=== PATIENT | female | born 1985 | race Caucasian/White ===

== ENCOUNTER 2020-05-28 05:16 | Inpatient (IN) | payer OTHER, SELFPAY ==
[2020-05-28] VITALS (24 sets, daily range): BP systolic 125–171; BP diastolic 55–97; PULSE 80–126; RESP 15–24; TEMP 36.6–36.9; O2SAT 80–97
--- NOTE | ~2020-05-28 | XR_ITS ---
EXAMINATION: XR chest 1V portable DATE: 05/28/2020 06:13 INDICATION: Asthma presenting with dyspnea. TECHNIQUE: frontal view of the chest was obtained. COMPARISON: None FINDINGS: Right internal jugular central venous port catheter with distal tip near the superior cavoatrial junc tion. The lungs are clear with no focal airspace opacities, pulmonary edema, pleural effusion or pneu mothorax. The cardiomediastinal silhouette is normal. Visualized bones and soft tissues are unremarka ble. IMPRESSION: 1. No acute cardiopulmonary disease. Reviewed, dictated and finalized at location A.
[2020-05-28] MEDS: IPRATROPIUM BR 0.02% INH SOLN 0.5 MG/2.5 ML VIAL INHALATION ×5 (05:41→20:16)
[2020-05-28] MEDS: ALBUTEROL SULFATE NEB 2.5 MG/0.5 ML INH 5 MG INHALATION ×5 (05:41→20:16)
[2020-05-28] MEDS: methylPREDNISolone SOD SUCC 125 MG VIAL IV PUSH (05:42)
[2020-05-28] MEDS: MAGNESIUM SULF 2 GM/WATER 50ML 2 GM/50 ML BAG IVPB (05:42)
--- NOTE | 2020-05-28 05:50 | ECG_ITS ---
Measurements Intervals [place] Rate: 106 P: 83 [place]: 150 QRS: 79 QRSD: 93 T: 50 QT: 328 QTc: 436 Interpretive Statements SINUS TACHYCARDIA DELAYED PRECORDIAL R/S TRANSITION BORDERLINE ST-T WAVE ABNORMALITY- INFERIOR LEADS BASELINE ARTIFACT- I, II, III, AVR, AVL, AVF, V1-V6 ABNORMAL ECG Electronically Signed On 05-28-2020 9:04:11 CDT by Evaristo Doherty D.O.
--- NOTE | 2020-05-28 05:59 | ED.GENADULT ---
HPI - General Adult General Chief complaint: Asthma Stated complaint: SOB Time Seen by Provider: 05/28/20 05:30 History of Present Illness HPI narrative: Patient a 34-year-old female who presents the emergency department chief complaint of shortness of breath. Patient reports she has history of asthma has not required any previous intubations or admissions patient states that her children have had an upper respiratory infection recently and tonight she started having shortness of breath. The patient reports she used her inhaler multiple times and has had continual shortness of breath upon initial presentation she had a room air saturation in the 80s. The patient reports that she has not had a fever reports that she has been wheezing significantly Related Data Allergies Allergy/AdvReac Type Severity Reaction Status Date / Time bacitracin Allergy Mild Unverified 06/29/18 14:37 neomycin Allergy Mild Unverified 06/29/18 14:37 amoxicillin Allergy Unknown Skin Verified 02/14/17 21:20 Reaction codeine Allergy Unknown Nausea Verified 02/14/17 21:20 polymyxin B Allergy Unknown Nausea Verified 06/29/18 14:37 Sulfa (Sulfonamide Allergy Unknown Verified 06/29/18 14:37 Antibiotics) Review of Systems Review of Systems: Narrative: A 10 system review of systems was completed on the patient and is negative except for what is stated in the HPI. Nursing and ancillary documentation was reviewed. [facility] Surgical History Surgical History H/O bilateral mastectomy right- prophylactic/ left mod radical ( er neg) Social History Social History Smoking status: Never smoker Alcohol intake: never Comments Past medical history significant for asthma Exam Narrative: Exam Narrative: GENERAL: Well-appearing, well-nourished, and in no acute distress. HEAD: Normocephalic, atraumatic. EYES: PERRLA and EOMI. ENT: Nares clear, no rhinorrhea or epistaxis. Mucous membranes moist. NECK: Supple. CHEST: Expiratory wheezes auscultation. Mild respiratory distress. HEART: Regular rate and rhythm. No murmur heard. Normal peripheral pulses. ABDOMEN: Soft, nontender, nondistended, normal active bowel sounds. EXTREMITIES: Normal range of motion. No edema. SKIN: Warm, dry, no rash. NEURO: No focal deficits. Alert and oriented x3. PSYCH: Normal mood and affect. Course Vital Signs Vital signs: Vital Signs Temperature 36.9 C 05/28/20 05:22 Pulse Rate 110 H 05/28/20 05:22 Respiratory Rate 17 05/28/20 05:22 Blood Pressure 171/95 H 05/28/20 05:22 Pulse Oximetry 80 L 05/28/20 05:22 Temperature 36.9 C 05/28/20 05:22 Pulse Rate 89 05/28/20 06:58 Respiratory Rate 15 05/28/20 06:58 Blood Pressure 136/63 05/28/20 06:58 Pulse Oximetry 96 05/28/20 06:58 Medical Decision Making Vital Signs Vital Signs: Vital Signs Temperature 36.9 C 05/28/20 05:22 Pulse Rate 110 H 05/28/20 05:22 Respiratory Rate 17 05/28/20 05:22 Blood Pressure 171/95 H 05/28/20 05:22 Pulse Oximetry 80 L 05/28/20 05:22 Temperature 36.9 C 05/28/20 05:22 Pulse Rate 89 05/28/20 06:58 Respiratory Rate 15 05/28/20 06:58 Blood Pressure 136/63 05/28/20 06:58 Pulse Oximetry 96 05/28/20 06:58 Lab Data Result diagrams: 05/28/20 05:53 05/28/20 05:53 Labs: Lab Results 05/28/20 05/28/20 Range/Units 05:53 05:53 WBC 13.8 H (4.5-10.0) K/mm3 RBC 4.62 (4.2-5.4) M/mm3 Hgb 13.3 (12.0-15.0) g/dL Hct 40.7 (37.0-47.0) % MCV 88.1 (80-100) fl MCH 28.8 (26-34) pg MCHC 32.7 (32-36) g/dl RDW 14.3 (11.5-14.5) % Plt Count 367 (150-375) k/mm3 MPV 9.5 (7.4-10.4) fl Immature Gran % (Auto) 0.4 (0-0.5) % Neut % (Auto) 84.9 H (45.5-73.1) % Lymph % (Auto) 7.5 L (18.3-44.2) % [place] % (Auto) 5.1 (2.6-8.5) % Eos % (Auto) 1.7
--- NOTE | 2020-05-28 06:00 | PC.NURSE ---
pt states she isn't able to urinate at this time.
[2020-05-28 06:06] LABS: Basophils Absolute Auto 0.1 K/mm3 (0.0-0.1); Basophils Percent Auto 0.4 % (0.2-1.2); Eosinophils Absolute Auto 0.2 K/mm3 (0-0.3); Eosinophils Percent Auto 1.7 % (0-4.4); Hematocrit 40.7 % (37.0-47.0); Hemoglobin 13.3 g/dL (12.0-15.0); Immature Granulocyte Absolute 0.05 K/mm3 (0.00-0.031); Immature Granulocyte Percent A 0.4 % (0-0.5); Lymphocytes Absolute Auto 1.04 K/mm3 (0.9-3.2); Lymphocytes Percent Auto 7.5 % (18.3-44.2); Mean Corpuscular HGB Conc 32.7 g/dl (32-36); Mean Corpuscular Hemoglobin 28.8 pg (26-34); Mean Corpuscular Volume 88.1 fl (80-100); Mean Platelet Volume 9.5 fl (7.4-10.4); Monocytes Absolute Auto 0.7 K/mm3 (0.1-0.6); Monocytes Percent Auto 5.1 % (2.6-8.5); Neutrophils Absolute Auto 11.7 K/mm3 (1.3-6.7); Neutrophils Percent Auto 84.9 % (45.5-73.1); Platelet Count Result 367 k/mm3 (150-375); Red Blood Count 4.62 M/mm3 (4.2-5.4); Red Cell Distribution Width 14.3 % (11.5-14.5); White Blood Count 13.8 K/mm3 (4.5-10.0)
[2020-05-28 06:22] LABS: Alanine Aminotransferase 19 U/L (4-35); Albumin Level 4.3 g/dL (3.5-5.1); Alkaline Phosphatase 74 U/L (38-126); Anion Gap 8 mmol/L (8-16); Aspartate Amino Transferase 28 U/L (14-36); Bilirubin,Total 0.2 mg/dL (0.2-1.3); Blood Urea Nitrogen 9 mg/dL (7-17); Calcium 8.4 mg/dL (8.4-10.2); Carbon Dioxide 24 mmol/L (22-30); Chloride 108 mmol/L (98-107); Estimated Glomerular Filt Rate > 60; Glucose 117 mg/dL (65-105); Potassium 3.6 mmol/L (3.4-5.0); Sodium 140 mmol/L (137-145)
--- NOTE | 2020-05-28 06:59 | PC.NURSE ---
pt states she still isnt able to urinate. denies straight cath
--- NOTE | 2020-05-28 07:12 | PC.NURSE ---
Took over care of pt at this time.
--- NOTE | 2020-05-28 09:00 | ADMGEN ---
This patient, Shadia Nieves, was admitted to [facility] Surg Room 311-01. Patient/family oriented to hospital policies and general routines including ID bracelet, bed and alarms, visiting hours, pain management, procedures, bathroom and other care routines, personal items, smoking policy, room service/diet, and visiting hours. Information on how to activate the Rapid Response Team has been discussed. Patient/Family are encouraged to report perceived risks to care and to ask questions if they do not understand what they are told or what they should do.
[2020-05-28] MEDS: ALPRAZolam (*CRX) 0.5 MG TABLET PO ×3 (10:29→17:32)
--- NOTE | 2020-05-28 13:39 | PM.IMHP ---
H&P: HPI History of Present Illness Date/Time: 05/28/20 13:39, patient is a 34-year-old female with history of asthma patient uses albuterol inhaler, patient states nearly every night patient gets up with cough and shortness of she does uses nebulizer with some relief however her children's and now have upper respiratory infection and symptoms were getting worse and patient became hypoxic upon arrival to emergency depart she was desaturating and 80s on room air, was placed on 2 L nasal cannula given updraft as well as Solu-Medrol, patient states feeling much better compared to when she arrived, c/o cough, shortness of breath and wheezing but no fever or chills, patient's chest x-ray does not show any cardiopulmonary pathology however have added doxycycline to cover for atypicals will continue Solu-Medrol, Pulmicort and updraft, there is also concern the patient may be positive for COVID patient is isolated and tested will continue to monitor, Chief Complaint: Shortness of breath Review of Systems Review of Systems: All systems reviewed & are unremarkable except as noted in HPI and below [facility] Surgical History Surgical History H/O bilateral mastectomy right- prophylactic/ left mod radical ( er neg) Family History Family History (Updated 05/28/20 @ 09:59 by Murtaza Dutton RN) Sibling Asthma Father Chronic obstructive pulmonary disease Diabetes mellitus Social History Social History Smoking status: Never smoker Alcohol intake: never Substance use: never Spiritual care concerns: No Meds Home Medications and Allergies Home Medications Medication Instructions Recorded Confirmed Type alprazolam 0.5 mg tablet 0.5 mg PO TID #90 tablet 06/23/19 05/28/20 Rx paroxetine HCl 40 mg tablet See Rx Instructions .ROUTE 04/25/20 05/28/20 Rx .COMPLEX #90 tablet albuterol sulfate 2.5 mg INHALATION Q8H #75 ml 05/18/20 05/28/20 Rx Allergies Allergy/AdvReac Type Severity Reaction Status Date / Time bacitracin Allergy Mild Rash Verified 05/28/20 09:44 neomycin Allergy Mild Rash Verified 05/28/20 09:44 codeine Allergy Unknown Nausea Verified 02/14/17 21:20 polymyxin B Allergy Unknown Nausea Verified 06/29/18 14:37 Sulfa (Sulfonamide Allergy Unknown Rash Verified 05/28/20 09:44 Antibiotics) Vital Signs Vital Signs - 24 hr 05/28/20 05:22 05/28/20 05:25 05/28/20 05:42 Temperature 98.5 F Pulse Rate 110 H 111 H Respiratory Rate 17 18 Blood Pressure 171/95 H Pulse Oximetry 80 L 93 05/28/20 05:51 05/28/20 06:01 05/28/20 06:58 Temperature Pulse Rate 126 H 105 H 89 Respiratory Rate 19 21 H 15 Blood Pressure 146/97 H 136/63 Pulse Oximetry 97 96 05/28/20 07:30 05/28/20 07:42 05/28/20 07:50 Temperature Pulse Rate 97 95 98 Respiratory Rate 19 15 18 Blood Pressure 143/86 H Pulse Oximetry 95 05/28/20 08:30 05/28/20 09:00 05/28/20 09:30 Temperature 98.2 F Pulse Rate 93 89 Respiratory Rate 19 20 Blood Pressure 137/73 152/83 H Pulse Oximetry 95 96 91 05/28/20 10:37 05/28/20 10:49 05/28/20 12:00 Temperature 98.1 F Pulse Rate 102 H 96 80 Respiratory Rate 20 18 16 Blood Pressure 147/70 H Pulse Oximetry 92 93 Exam Narrative: Exam Narrative: Able to speak in full sentences Patient is comfortable, NAD HEENT: eyes are clear and none icteric LUNGS: Bilateral fair air entry with rhonchi and wheezing HEART: RR S1S2 ABD: BS+, Soft and nontender Lower extremities: no edema SKIN: nonjaundiced Neuro: grossly intact. H&P: Results Labs Labs: Short CBC 05/28/20 Range/Units 05:53 WBC 13.8 H (4.5-10.0) K/mm3 Hgb 13.3 (12.0-15.0) g/dL Hct 40.7 (37.0-47.0) % Plt Count 367 (150-375) k/mm3 [facility] 05/28/20 05:53 Sodium 140 Potassium 3.6 Chloride 108 H Carbon Dioxide 24 BUN 9 Creatinine 0.50 L Glucose
[2020-05-28] MEDS: methylPREDNISolone SOD SUCC 125 MG VIAL 60 MG IV PUSH ×2 (13:48→21:20)
[2020-05-28] MEDS: BUDESONIDE RESPULE NEB 0.5 MG/2 ML AMP INHALATION (20:16)
[2020-05-28] MEDS: PARoxetine 20 MG TABLET BY MOUTH (21:02)
[2020-05-28] MEDS: ACETAMINOPHEN 325 MG TABLET 650 MG PO (21:04)
[2020-05-29] VITALS (17 sets, daily range): BP systolic 118–151; BP diastolic 58–78; PULSE 85–109; RESP 18–20; TEMP 36.1–37; O2SAT 92–100
[2020-05-29] MEDS: ALBUTEROL SULFATE NEB 2.5 MG/0.5 ML INH 5 MG INHALATION ×4 (02:01→20:13)
[2020-05-29] MEDS: IPRATROPIUM BR 0.02% INH SOLN 0.5 MG/2.5 ML VIAL INHALATION ×4 (02:02→20:13)
[2020-05-29] MEDS: methylPREDNISolone SOD SUCC 125 MG VIAL 60 MG IV PUSH ×3 (06:07→20:35)
[2020-05-29] MEDS: BUDESONIDE RESPULE NEB 0.5 MG/2 ML AMP INHALATION ×2 (08:03→20:13)
[2020-05-29] MEDS: ALPRAZolam (*CRX) 0.5 MG TABLET PO ×3 (10:27→17:39)
--- NOTE | 2020-05-29 13:57 | PM.IMPN ---
Progress Note: A&P Assessment and Plan (1) Exacerbation of asthma: Code(s): J45.901 - Unspecified asthma with (acute) exacerbation Status: Acute Assessment and Plan: 05/29/20 13:57 patient is a 34-year-old female with history of asthma patient uses albuterol inhaler, patient states nearly every night patient gets up with cough and shortness of she does uses nebulizer with some relief however her children's and now have upper respiratory infection and symptoms were getting worse and patient became hypoxic upon arrival to emergency depart she was desaturating and 80s on room air, was placed on 2 L nasal cannula given updraft as well as Solu-Medrol, patient states feeling much better compared to when she arrived, c/o cough, shortness of breath and wheezing but no fever or chills, patient's chest x-ray does not show any cardiopulmonary pathology however have added doxycycline to cover for atypicals will continue Solu-Medrol, Pulmicort and updraft, there is also concern the patient may be positive for COVID patient is isolated and tested will continue to monitor. 05/29 patient with examination of asthma being treated with Solu-Medrol updraft and doxycycline states feeling much better today not a short of breath and wants to go home, patient is being isolated and tested to COVID is pending, will continue to monitor and follow-up on COVID test and further recommendation to follow, as her symptoms improve will taper Solu-Medrol to oral prednisone further recommendation to follow. (2) COVID-19 ruled out: Code(s): Z20.822 - Contact with and (suspected) exposure to COVID-19 Status: Acute Assessment and Plan: there is also concern the patient may be positive for COVID patient is isolated and tested will continue to monitor. Subjective Date/time seen: 05/29/20 13:57 patient is a 34-year-old female with history of asthma patient uses albuterol inhaler, patient states nearly every night patient gets up with cough and shortness of she does uses nebulizer with some relief however her children's and now have upper respiratory infection and symptoms were getting worse and patient became hypoxic upon arrival to emergency depart she was desaturating and 80s on room air, was placed on 2 L nasal cannula given updraft as well as Solu-Medrol, patient states feeling much better compared to when she arrived, c/o cough, shortness of breath and wheezing but no fever or chills, patient's chest x-ray does not show any cardiopulmonary pathology however have added doxycycline to cover for atypicals will continue Solu-Medrol, Pulmicort and updraft, there is also concern the patient may be positive for COVID patient is isolated and tested will continue to monitor. 05/29 patient with examination of asthma being treated with Solu-Medrol updraft and doxycycline states feeling much better today not a short of breath and wants to go home, patient is being isolated and tested to COVID is pending, will continue to monitor and follow-up on COVID test and further recommendation to follow, as her symptoms improve will taper Solu-Medrol to oral prednisone further recommendation to follow. Review of Systems Review of Systems: All systems reviewed & are unremarkable except as noted in HPI and below Exam Narrative: Exam Narrative: Able to speak in full sentences Patient is comfortable, NAD HEENT: eyes are clear and none icteric LUNGS: Bilateral fair air entry with rhonchi and wheezing HEART: RR S1S2 ABD: BS+, Soft and nontender Lower extremities: no edema SKIN: nonjaundiced Neuro: grossly intact. Objective Data Vital Signs Vital Signs: Vital Signs - 24 hr 05/28/20 15:25 05/28/20 15:38 05/28/20 16:00 Temperature 98.5 F Pulse Rate 104 H 100 115 H Respiratory Rate 20 20 24 H Blood Pressure 136/55 L Pulse Oximetry 92 05/28/20 20:00 05/28/20 20:16 05/28/20 20:32 Temperature 97.8 F Pulse Rate 104 H 99 101 H Respiratory Rate
[2020-05-29 15:44] LABS: Add Urine Microscopic? YES; Appearance Urine Clear (Clear); Bilirubin Urine Negative (Negative); Blood Urine Negative (Negative); Color Urine Yellow (Yellow); Glucose Urine UA 1+ mg/dL (Negative); Ketones Urine Negative (Negative); Leukocyte Esterase Ur Negative LEU/UL (Negative); Nitrate Urine Negative (Negative); Protein Urine Negative (Negative); RBC Urine 0-2 /hpf (0-2); Specific Grav Ur 1.016 (1.001-1.035); Squamous Epithelial Cell Urine Few /hpf (Few); Urobilinogen Urine Negative mg/dL (<2.0); WBC Urine 0-3 /hpf
[2020-05-29 19:04] LABS: SARS-CoV-2 RNA PCR Negative
[2020-05-29] MEDS: PARoxetine 20 MG TABLET BY MOUTH (20:35)
[2020-05-29] MEDS: ACETAMINOPHEN 325 MG TABLET 650 MG PO (20:37)
[2020-05-30 02:22] VITALS: PULSE 92; RESP 20
[2020-05-30] MEDS: ALBUTEROL SULFATE NEB 2.5 MG/0.5 ML INH 5 MG INHALATION ×2 (02:22→08:45)
[2020-05-30] MEDS: IPRATROPIUM BR 0.02% INH SOLN 0.5 MG/2.5 ML VIAL INHALATION ×2 (02:23→08:45)
[2020-05-30 02:28] VITALS: PULSE 93; RESP 20
[2020-05-30 03:26] VITALS: BP 125/66; PULSE 87; RESP 18; TEMP 36.5; O2SAT 93
[2020-05-30 05:39] VITALS: BP 125/66; PULSE 87; RESP 18; TEMP 36.5; O2SAT 93
[2020-05-30 05:52] LABS: Hematocrit 41.3 % (37.0-47.0); Hemoglobin 13.2 g/dL (12.0-15.0); Mean Corpuscular Hemoglobin 28.8 pg (26-34); Mean Platelet Volume 9.5 fl (7.4-10.4); Platelet Count Result 376 k/mm3 (150-375); Red Blood Count 4.59 M/mm3 (4.2-5.4); Red Cell Distribution Width 15.5 % (11.5-14.5)
[2020-05-30 06:10] LABS: Anion Gap 8 mmol/L (8-16); Blood Urea Nitrogen 16 mg/dL (7-17); Calcium 8.7 mg/dL (8.4-10.2); Carbon Dioxide 23 mmol/L (22-30); Chloride 109 mmol/L (98-107); Estimated CRCL calculation 129 ml/min; Estimated Glomerular Filt Rate > 60; Glucose 108 mg/dL (65-105); Magnesium 2.2 mg/dL (1.6-2.3); Potassium 4.1 mmol/L (3.4-5.0); Sodium 140 mmol/L (137-145)
[2020-05-30 08:45] VITALS: PULSE 77; RESP 18; O2SAT 95
[2020-05-30] MEDS: BUDESONIDE RESPULE NEB 0.5 MG/2 ML AMP INHALATION (08:45)
[2020-05-30 08:55] VITALS: PULSE 81; RESP 18
--- NOTE | 2020-05-30 10:42 | PM.DS ---
DS: Admitting Diagnosis Admitting Diagnosis Admitting Diagnosis: Chief Complaint: Shortness of breath DS: Discharge Diagnosis Discharge Diagnosis (1) Exacerbation of asthma: Qualifiers: Asthma severity: mild Asthma persistence: intermittent Qualified Code(s): J45.21 - Mild intermittent asthma with (acute) exacerbation Code(s): J45.901 - Unspecified asthma with (acute) exacerbation Status: Acute Assessment and Plan: 05/29/20 13:57 patient is a 34-year-old female with history of asthma patient uses albuterol inhaler, patient states nearly every night patient gets up with cough and shortness of she does uses nebulizer with some relief however her children's and now have upper respiratory infection and symptoms were getting worse and patient became hypoxic upon arrival to emergency depart she was desaturating and 80s on room air, was placed on 2 L nasal cannula given updraft as well as Solu-Medrol, patient states feeling much better compared to when she arrived, c/o cough, shortness of breath and wheezing but no fever or chills, patient's chest x-ray does not show any cardiopulmonary pathology however have added doxycycline to cover for atypicals will continue Solu-Medrol, Pulmicort and updraft, there is also concern the patient may be positive for COVID patient is isolated and tested will continue to monitor. 05/29 patient with examination of asthma being treated with Solu-Medrol updraft and doxycycline states feeling much better today not a short of breath and wants to go home, patient is being isolated and tested to COVID is pending, will continue to monitor and follow-up on COVID test and further recommendation to follow, as her symptoms improve will taper Solu-Medrol to oral prednisone further recommendation to follow. (2) COVID-19 ruled out: Code(s): Z20.822 - Contact with and (suspected) exposure to COVID-19 Status: Inactive Assessment and Plan: there is also concern the patient may be positive for COVID patient is isolated and tested will continue to monitor. DS: Summary Hospital Course Reason for hospitalization: patient is a 34-year-old female with history of asthma patient uses albuterol inhaler, patient states nearly every night patient gets up with cough and shortness of she does uses nebulizer with some relief however her children's and now have upper respiratory infection and symptoms were getting worse and patient became hypoxic upon arrival to emergency depart she was desaturating and 80s on room air, was placed on 2 L nasal cannula given updraft as well as Solu-Medrol, patient states feeling much better compared to when she arrived, c/o cough, shortness of breath and wheezing but no fever or chills, patient's chest x-ray does not show any cardiopulmonary pathology however have added doxycycline to cover for atypicals will continue Solu-Medrol, Pulmicort and updraft, there is also concern the patient may be positive for COVID patient is isolated and tested will continue to monitor, Chief Complaint: Shortness of breath Hospital Course: patient is a 34-year-old female with history of asthma patient uses albuterol inhaler, patient states nearly every night patient gets up with cough and shortness of she does uses nebulizer with some relief however her children's and now have upper respiratory infection and symptoms were getting worse and patient became hypoxic upon arrival to emergency depart she was desaturating and 80s on room air, was placed on 2 L nasal cannula given updraft as well as Solu-Medrol, patient states feeling much better compared to when she arrived, c/o cough, shortness of breath and wheezing but no fever or chills, patient's chest x-ray does not show any cardiopulmonary pathology however have added doxycycline to cover for atypicals will continue Solu-Medrol, Pulmicort and updraft, there is also concern the patient may be positive for COVID patient is isolated and tested wi
== END 2020-05-30 11:25 | disposition home or self-care (01) | DRG 203 ==
LOC: ANHED 07:51 → ANH3MEDSUR 08:01
PROVIDERS: Admitting Provider Family Medicine; Emergency Provider Emergency Medicine; PCP Family Medicine; Visit Provider Family Medicine
DX: J45.21 Mild intermittent asthma with (acute) exacerbation; R09.02 Hypoxemia; Z20.822 Contact with and (suspected) exposure to COVID-19; Z79.899 Other long term (current) drug therapy
CPT/HCPCS: 36415; 71045; 80048; 80053; 81001; 83735; 85025; 85027; 87040; 93005; 94640; 96361; 96365; 96367; 96375; 96376; 99285; A9270; C9803; G0378; J2930; J3475; U0003; U0005

== ENCOUNTER 2021-10-07 07:11 | Emergency (ER) | payer OTHER, SELFPAY ==
[2021-10-07] VITALS (9 sets, daily range): BP systolic 129–176; BP diastolic 71–92; PULSE 87–108; RESP 17–24; TEMP 36.1–36.4; O2SAT 92–99
--- NOTE | ~2021-10-07 | XR_ITS ---
EXAMINATION: XR chest 1V portable INDICATION: Shortness of breath TECHNIQUE: Portable AP chest at 0744 hours COMPARISON: 05/28/2020 FINDINGS: A right internal jugular Port-A-Cath ends with its tip at the superior cavoatrial junction. The lungs are free of acute opacities. No pleural effusion or pneumothorax. The cardiomediastinal si lhouette is normal. IMPRESSION: 1. No acute cardiopulmonary abnormality. Reviewed, dictated and finalized at location A.
--- NOTE | 2021-10-07 07:16 | ECG_ITS ---
Measurements Intervals [place] Rate: 97 P: 75 [place]: 142 QRS: 81 QRSD: 84 T: 58 QT: 342 QTc: 436 Interpretive Statements SINUS RHYTHM WITH SINUS ARRHYTHMIA POSSIBLE LEFT ATRIAL ENLARGEMENT [-0.1mV P-WAVE IN V1/V2] NONSPECIFIC ST ABNORMALITY ABNORMAL ECG COMPARED TO ECG 05/28/2020 05:32:35 SINUS RHYTHM NOW PRESENT SINUS ARRHYTHMIA NOW PRESENT Electronically Signed On 10-07-2021 12:19:24 CDT by Jack Smith M.D.
--- NOTE | 2021-10-07 07:22 | ED.GENADULT ---
HPI - General Adult General Chief complaint: Shortness of Breath/Dyspnea Stated complaint: trouble breathing Time Seen by Provider: 10/07/21 07:16 History of Present Illness HPI narrative: Shadia is a 36F with a PMH of asthma, anxiety and breast cancer that presented to the ER with SOB. It started yesterday. She became SOB, had wheezing, coughing, tightness in her chest and lost her voice. She also spiked a fever up to 102. No N/V or diarrhea. No syncope. Related Data Allergies Allergy/AdvReac Type Severity Reaction Status Date / Time bacitracin Allergy Mild Rash Verified 10/07/21 07:21 neomycin Allergy Mild Rash Verified 10/07/21 07:21 codeine Allergy Unknown Nausea Verified 10/07/21 07:21 polymyxin B Allergy Unknown Nausea Verified 10/07/21 07:21 Sulfa (Sulfonamide Allergy Unknown Rash Verified 10/07/21 07:21 Antibiotics) Review of Systems Review of Systems: All systems reviewed & are unremarkable except as noted in HPI and below [facility] Past Medical History Medical History (Updated 10/07/21 @ 09:23 by Sergio Patel DO) Anxiety disorder COVID-19 ruled out Major depressive disorder, single episode, unspecified Nondependent cocaine abuse in remission Surgical History Surgical History H/O bilateral mastectomy right- prophylactic/ left mod radical ( er neg) Family History Family History Sibling Asthma Father Chronic obstructive pulmonary disease Diabetes mellitus Social History Social History Smoking status: Never smoker Alcohol intake: never Substance use: never Spiritual care concerns: No Exam Const: General: healthy appearing and no acute distress Nutritional Appearance: well nourished Orientation/consciousness: patient oriented x3 HENMT: Head: normal to inspection Eyes: Conjunctivae: conjunctivae normal Pupils: Equal, round and reactive pupils present Neck: Neck: normal visual inspection Chest: Chest palpation & inspection: normal inspection of the chest Resp: Other: Increased respiratory effort. Diffuse wheezing with prolonged expiratory phase. Cough present on exam. Cardio: Rate: regular rate Rhythm: regular rhythm Heart sounds: no murmurs GI: Other: normal to inspection Skin: General skin exam: normal color Rashes: no rashes Neuro: General: patient oriented x3 and moves all extremities Extrem: Other: normal to inspection Psych: Mental Status: mental status grossly normal Course Course Emergency Course: Shadia was evaluated. Ordered CXR. labs, EKG, duoneb and steroids EKG showed sinus rhythm with a rate of 97, normal axis and no ST elevation/depression. EXAMINATION: XR chest 1V portable INDICATION: Shortness of breath TECHNIQUE: Portable AP chest at 0744 hours COMPARISON: 05/28/2020 FINDINGS: A right internal jugular Port-A-Cath ends with its tip at the superior cavoatrial junction. The lungs are free of acute opacities. No pleural effusion or pneumothorax. The cardiomediastinal silhouette is normal. IMPRESSION: 1. No acute cardiopulmonary abnormality. Labs showed slight leukocytosis but were otherwise largely unremarkable. She was given 2 additional breathing treatments. Vital Signs Vital signs: Vital Signs Temperature 97 F L 10/07/21 07:13 Pulse Rate 108 H 10/07/21 07:13 Respiratory Rate 24 H 10/07/21 07:13 Blood Pressure 176/71 H 10/07/21 07:13 Pulse Oximetry 92 10/07/21 07:13 Oxygen Delivery Room Air 10/07/21 07:13 Temperature 97.5 F L 10/07/21 09:34 Pulse Rate 90 10/07/21 09:38 Respiratory Rate 18 10/07/21 09:38 Blood Pressure 129/77 10/07/21 09:34 Pulse Oximetry 98 10/07/21 09:38 Oxygen Delivery Room Air 10/07/21 08:00 Oxygen Flow Rate 0 10/07/21 09:28 Medical Decision Making Vital Signs Vital Signs: Vital Signs
[2021-10-07] MEDS: IPRATROPIUM 0.5 MG/ALBUTEROL SULFATE 2.5 MG AMPUL.NEB 3 ML INHALATION ×2 (07:39→07:53)
[2021-10-07] MEDS: methylPREDNISolone SOD SUCC 125 MG VIAL IV PUSH (08:19)
[2021-10-07 08:21] LABS: Basophils Absolute Auto 0.05 K/mm3 (0.00-0.10); Basophils Percent Auto 0.4 % (0.0-1.0); Eosinophils Absolute Auto 0.45 K/mm3 (0.02-0.50); Eosinophils Percent Auto 3.5 % (1.0-6.0); Hematocrit 42.2 % (35.0-49.0); Hemoglobin 13.8 g/dL (12.0-15.0); Immature Granulocyte Absolute 0.04 K/mm3 (0.00-0.00); Immature Granulocyte Percent A 0.3 % (0.0-0.0); Lymphocytes Absolute Auto 0.65 K/mm3 (1.10-4.50); Lymphocytes Percent Auto 5.1 % (18.0-42.0); Mean Corpuscular HGB Conc 32.7 g/dL (32.0-36.0); Mean Corpuscular Hemoglobin 29.7 pg (27.0-31.0); Mean Corpuscular Volume 90.8 fL (78.0-102.0); Mean Platelet Volume 9.5 fl (9.2-11.8); Monocytes Absolute Auto 0.62 K/mm3 (0.10-0.90); Monocytes Percent Auto 4.9 % (2.0-11.0); Neutrophils Percent Auto 85.8 % (50.0-70.0); Platelet Count Result 355 K/mm3 (150-420); Red Blood Count 4.65 M/mm3 (4.20-5.40); Red Cell Distribution Width 13.9 % (11.6-14.4); White Blood Count 12.8 K/mm3 (4.8-10.8)
[2021-10-07 08:33] LABS: Pregnancy On Board Control Positive; Urine Pregnancy Test Negative
[2021-10-07 08:48] LABS: Alanine Aminotransferase 39 U/L (14-59); Albumin Level 3.9 g/dL (3.4-5.0); Alkaline Phosphatase 77 U/L (46-116); Anion Gap 8 mmol/L (8-16); Aspartate Amino Transferase 19 U/L (15-37); Bilirubin,Total 0.3 mg/dL (0.00-1.00); Blood Urea Nitrogen 11 mg/dL (7-18); Calcium 8.6 mg/dL (8.5-10.1); Carbon Dioxide 25 mmol/L (21-32); Chloride 105 mmol/L (98-108); Estimated CRCL calculation 121 ml/min; Estimated Glomerular Filt Rate > 60; Glucose 115 mg/dL (70-99); NT Pro B Type Natriuretic Pept 103 pg/mL (0-125); Osmolality Calculated 286 mOsm/kg (285-295); Potassium 3.7 mmol/L (3.5-5.1); Sodium 138 mmol/L (136-145); Total Protein 7.6 g/dL (6.4-8.2); Troponin I 4.9 ng/L (0.00-60.4)
[2021-10-07 09:20] LABS: SARS-CoV-2 RNA PCR Negative (Negative)
[2021-10-07] MEDS: ALBUTEROL SULFATE NEB 2.5 MG/3 ML INH INHALATION (09:26)
== END 2021-10-07 09:41 | disposition home or self-care (01) ==
PROVIDERS: Emergency Provider Family Medicine; PCP Family Medicine
DX: J45.909 Unspecified asthma, uncomplicated (principal); Z20.822 Contact with and (suspected) exposure to COVID-19
CPT/HCPCS: 36415; 71045; 80053; 81025; 83880; 84484; 85025; 93005; 94640; 96372; 99284; C9803; J2930; U0003; U0005